=== PATIENT | male | born 1960 ===

== ENCOUNTER 2020-07-13 15:24 | Emergency (ER) | payer OTHER ==
[~2020-07-13] VITALS: Ht 175.3 cm; Wt 78.0 kg
[2020-07-13] MEDS ORDERED: TOPROL XL50 MG PO (15:39)
[2020-07-13] MEDS ORDERED: ISOSORBIDE MONO30 MG (15:39)
[2020-07-13] MEDS ORDERED: LIPITOR40 M1 PO (15:39)
[2020-07-13] MEDS ORDERED: JANUVIA100 MG PO (15:39)
[2020-07-13] MEDS ORDERED: ADULT LOW DOSE81 M1 PO (15:40)
[2020-07-13] MEDS ORDERED: OMEPRAZOLE-BIC1 EAC1 PO (15:40)
[2020-07-13] MEDS ORDERED: CARAFATE1 GM PO (22:31)
[2020-07-13] MEDS ORDERED: PEPCID AC20 MG PO (22:31)
[2020-07-13] MEDS ORDERED: ONDANSETRON HCL4 MG PO (22:31)
== END 2020-07-13 22:46 | disposition home or self-care (01) ==
LOC: ER 15:24
DX: K29.60 Other gastritis without bleeding (principal); N28.1 Cyst of kidney, acquired; Z03.818 Encounter for observation for suspected exposure to other biological agents ruled out